=== PATIENT | female | born 1965 | race Caucasian/White ===

== ENCOUNTER 2021-12-02 10:49 | Outpatient (CLI) | payer OTHER, SELFPAY ==
--- NOTE | 2021-12-02 10:59 | RAD_ITS ---
STUDY: X-RAY - LEFT ELBOW REASON FOR EXAM: Female, 56 years old. Trauma. Pain. TECHNIQUE: 3 view(s) of the elbow. COMPARISON: None. FINDINGS: Impacted radial head fracture. Joint effusion. The soft tissue structures are unremarkable. RAD/Elbow min 3 Views IMPRESSION: Impacted radial head fracture with joint effusion. Electronically Signed: Leon Pinto MD at 11:56 EST ,
--- NOTE | 2021-12-02 11:00 | RAD_ITS ---
STUDY: X-RAY - LEFT WRIST REASON FOR EXAM: Female, 56 years old. Trauma. Pain. TECHNIQUE: 3 view(s) of the wrist were obtained. COMPARISON: None. FINDINGS: Mild arthrosis of the radiocarpal articulation. Mild arthrosis of the radioulnar articulation. Mild arthrosis of the radial carpal row. Mild arthrosis of the first CMC joint. Mild arthrosis of the visualized MCP joints. The soft tissue structures are unremarkable. RAD/Wrist min 3 Views IMPRESSION: Osteoarthritic changes. No acute abnormality. Electronically Signed: Leon Pinto MD at 11:57 EST ,
== END 2021-12-02 23:59 | disposition short-term general hospital (02) ==
LOC: RAD 10:58
PROVIDERS: Referring Provider Emergency Medicine; Visit Provider Emergency Medicine
DX: S52.122A Displaced fracture of head of left radius, initial encounter for closed fracture (principal); X58.XXXA Exposure to other specified factors, initial encounter; M19.032 Primary osteoarthritis, left wrist
CPT/HCPCS: 73080; 73110